=== PATIENT | male | born 1965 | race Caucasian/White ===

== ENCOUNTER → 2017-09-27 | Outpatient (CLI) | payer BC, OTHER ==
--- NOTE | 2017-09-27 13:33 | MRI ---
EXAM DESCRIPTION: Brain w/o Contrast: MRI. CLINICAL HISTORY: DIZZINESS COMPARISON: None. TECHNIQUE: Multiplanar, high-field MRI unit, multiple diffusion sequences, multiple conventional sequences without contrast. FINDINGS: Normal bilateral and symmetric FLAIR and T2-weighted signal in the periventricular white matter and ferreira-white matter junctions of the cerebral hemispheres. . Normal signal in the bilateral basal ganglia. No hemorrhage, no cerebral edema, no mass-effect. Normal signal in the brainstem and cerebellar hemispheres. No hemorrhage, no cerebral edema, no mass-effect. Concordance of the diffusion and non-diffusion sequences with no diffusion restriction. Cortical sulci, ventricles, and other CSF spaces, and the subdural spaces are normally configured for patients age. No effacement or displacement. No midline shift. No extra-axial hemorrhage. Normal flow signal void in the major vessels of the [place], and the venous sinuses. IACs are symmetric bilaterally. Normal signal in the bilateral mastoid air cells. No mass effect in the bilateral cerebellopontine angles. Pituitary gland occupies most of the sella. Base of the cerebellar tonsils is at the level of the foramen magnum. Minimal mucosal periosteal thickening in the. The bony calvarium is intact. IMPRESSION: 1. No intra-axial, extra-axial axial hemorrhage, no mass effect, no cerebral edema, no midline shift. 2. Normal noncontrast MRI diffusion scan with no evidence of acute or subacute infarction. 3. Minimal chronic paranasal sinusitis. Electronically signed by: Addison Weber MD 09/27/2017 1:31 PM CDT
== END ==
LOC: MRI 06:56
PROVIDERS: ATTEND Family Medicine
DX: R42 Dizziness and giddiness (principal); J32.9 Chronic sinusitis, unspecified

== ENCOUNTER 2019-02-25 05:05 | Day surgery (SDC) | payer BC, SELFPAY ==
[2019-02-25] MEDS ORDERED: LACTATED RINGERS 1,000 ML ONE (06:59)
[2019-02-25 08:34] VITALS: O2SAT 99
--- NOTE | 2019-02-25 08:49 | OP ---
DATE OF PROCEDURE: 02/25/19 PREOPERATIVE DIAGNOSIS: 1. Colorectal cancer screening. POSTOPERATIVE DIAGNOSIS: 1. Descending colon polyp. PROCEDURE: 1. Colonoscopy with biopsy. SURGEON: Kevin Murrieta MD ANESTHESIA: Monitored anesthesia care. ESTIMATED BLOOD LOSS: Less than 5 mL. COMPLICATIONS: None. PROCEDURE: The patient was placed in the left lateral decubitus position. A time-out was performed. After deep sedation was achieved, a digital rectal exam was performed and noted to be unremarkable. The Olympus adult colonoscope was inserted through the anus, into the rectum and advanced to the cecum under direct visualization without difficulty. The cecum was identified by the ileocecal valve, appendiceal orifice and terminal ileum. Photodocumentation of these locations was performed. The patients bowel preparation was good. The endoscope was then progressively withdrawn and the total colonic lumen evaluated. Retroflexion was performed in the rectum. The endoscope was then withdrawn and the procedure terminated. The patient tolerated the procedure well with no immediate complications. FINDINGS: 1. One 3 mm sessile polyp was found in the descending colon. This polyp was removed with the cold biopsy forceps and retrieved for pathology. 2. The remainder of the colonoscopy exam was unremarkable to the terminal ileum. IMPRESSION: 1. Descending colon polyp, removed as above. RECOMMENDATIONS: 1. Okay to discharge home once the patient meets discharge criteria. 2. Resume prior diet. 3. Resume home medications. 4. Await pathology results. 5. Repeat colonoscopy in 5 to 10 years based on pathology results. 6. Followup in the GI clinic with Dr. Murrieta as needed. 7. Followup with referring physician as previously scheduled. #[id number] [facility]
[2019-02-25 09:16] VITALS: BP 149/72; TEMP 97.3
[2019-02-25] MEDS ORDERED: PROPOFOL 200 MG/20 ML VIAL IV ONE (10:00)
[2019-02-25] MEDS ORDERED: LIDOCAINE 1% 10 ML VIAL INJ ONE (10:00)
== END 2019-02-25 09:05 | disposition home or self-care (01) ==
LOC: AMB 05:05
PROVIDERS: ATTEND Internal Medicine Gastroenterology
DX: Z12.11 Encounter for screening for malignant neoplasm of colon (principal); K63.5 Polyp of colon
CPT/HCPCS: 00812; 45380; J3490; J7120

== ENCOUNTER → 2019-04-23 | Outpatient (CLI) | payer BC | LOC: GMAJ 10:51 | PROVIDERS: ATTEND Family Medicine | DX: Z12.5 Encounter for screening for malignant neoplasm of prostate (principal) ==